=== PATIENT | female | born 1985 | race Asian ===

== ENCOUNTER 2025-09-30 20:17 | Emergency (ER) | payer OTHER ==
[~2025-09-30] VITALS: Ht 144.8 cm; Wt 62.4 kg
--- NOTE | 2025-09-30 21:48 | Physician Documentation ---
History of Present Illness ~ Chief Complaint: Mechanical Fall Stated Complaint: FALL Time Seen by MD: 20:56 HPI Patient is a very pleasant 40-year-old female that presents to the emergency department for evaluation of injuries sustained after a fall at work today. Patient reports that she was in the kitchen when the floor was wet she slipped landing on her sacrum falling back and hitting her head. Patient denies loss of consciousness but reports feeling lightheaded after the fall. Patient also reports that she has pain in her left hand and wrist after the fall. Patient denies being on blood thinners. Patient denies headache patient denies cervical spine tenderness thoracic spine tenderness or lumbar spine tenderness. No other symptoms reported at this time. Medication Reconciliation Allergies: Coded Allergies: No Known Allergies (Unverified , 09/30/25) Review of Systems ROS As stated above in the HPI, otherwise all systems are reviewed and negative. Physical Exam Vital Signs: Temperature: 98.1, Heart Rate: 84, Respiratory Rate: 16, BP: 143/68, Pulse Oximetry: 99, Weight: 62.400 Oxygen Flow Rate: 0 Physical Exam VITALS: Reviewed and as above. GENERAL: Alert, no apparent distress. HEENT: Normocephalic, atraumatic, PERRL, EOMI, dry mucosa, no erythema RESPIRATORY: Lungs clear, normal breath sounds, no respiratory distress. CHEST: No accessory muscle use, no retractions CV: Regular rate, rhythm, no edema, no murmur, No: JVD GI: Soft, non-tender, bowels sounds present, no rebound, guarding, or rigidity BACK: No CVA tenderness, or swelling MUSCULOSKELETAL No deformities, no edema, with palpation to the sacrum coccyx region, negative C-spine T-spine L-spine tenderness with palpation during examination. SKIN: Warm and dry, no rash NEURO: Oriented x4, No motor or sensory deficit PSYCH: Normal mood and affect, no agitation Progress Results/Orders Results/Orders Orders - RUTH ABURTO [employer] Ct Head (09/30/25 21:50) Sacrum & Coccyx (09/30/25 21:43) Hand, Complete (3vw Min) (09/30/25 21:43) Completed Orders - RUTH ABURTO [employer] Ct Head (09/30/25 21:50) Sacrum & Coccyx (09/30/25 21:43) Hand, Complete (3vw Min) (09/30/25 21:43) Vital Signs 09/30/25 20:22 Temp 98.1 Pulse 84 Resp 16 B/P (MAP) 143/68 Pulse Ox 99 O2 Flow Rate 0 Medical Decision Making Additional information obtaine: other Findings Chief Complaint: Fall at work with head injury, sacral pain, and left hand/wrist pain. History of Present Illness: 40-year-old female presented to the emergency department following a fall at work. Patient slipped on wet kitchen floor, landing on sacrum with head strike. Reports transient lightheadedness post-fall but denies loss of consciousness. Complains of left hand/wrist pain and sacral pain. Denies headache, neck pain, or thoracic/lumbar spine tenderness. Not on anticoagulant medications. Diagnostic Studies: CT head: Negative for intracranial abnormalities or acute findings Left hand/wrist X-ray: Negative for fracture or dislocation Sacral X-ray: Positive for nondisplaced sacral fractures Medical Decision-Making: The patient sustained a mild traumatic brain injury with negative head CT and no loss of consciousness. Per [employer] guidelines, patients with negative neuroimaging who are neurologically intact can be safely discharged without need for repeat imaging or observation admission. [1] Discharge instructions were provided regarding symptoms of rare delayed intracranial hemorrhage. [1] The patient has nondisplaced sacral fractures confirmed on plain radiography. Sacral fractures following low-energy trauma are common and frequently occur in isolation. [3] Conservative management is appropriate for nondisplaced sacral fractures without neurologic deficit or pelvic ring instability. [2] Treatment consists of analgesia, activity modification, and progressive mobi lization as tolerated. [2] The patient was counseled on use of donut cushion for sitting comfort and reducing ambulation during initial recovery period. Pain management will include NSAIDs as first-line therapy, which provide effective analgesia for acute musculoskeletal pain and are appropriate for fracture care. [4-5] Short-term NSAID use does not increase risk of fracture nonunion. [4] The left hand/wrist injury showed no radiographic abnormality and is consistent with soft tissue contusion. Symptomatic management is appropriate. Assessment and Plan: Mild traumatic brain injury - negative head CT, neurologically intact, disch arged with head injury precautions Nondisplaced sacral fractures - conservative management with activity modification, donut cushion, NSAIDs for pain control Left hand/wrist contusion - symptomatic management Disposition: Discharged home in stable condition with responsible adult. Patient instructed to return for worsening headache, confusion, weakness, numbness, or inability to ambulate. Follow-up with primary care physician in 1-2 weeks for reassessment and [id number] evaluation. [6] Patient verbalized understanding of discharge instructions and follow-up plan. Differential Dx:Considerations: Include: Closed head injury, Cardiac injury, Fracture(s), Intraabdominal injury, Pneumothorax, Cerebral contusion, Pulmonary contusion, Spine injury, Tracheal injury, Urological injury, Vascular injury, Abrasion(s), Contusion(s), Foreign body(s), Hematoma(s), Laceration(s), Encephalopathy, Other Departure Disposition: 01 HOME / SELF CARE / HOMELESS Impression: Primary Impression: Fall Additional Impression: Sacral fracture, closed Condition: Stable Discharge Instructions: Musculoskeletal Pain Additional Instructions: Your Diagnosis You have a nondisplaced sacral fracture. This is a break in the sacrum, which is the triangular bone at the base of your spine, just above your tailbone. The good news is that your fracture is not displaced (the bone pieces are still lined up properly), and your other imaging tests (head CT and hand X-ray) were normal. What to Expect Pain and discomfort are normal and will gradually improve over the next several weeks Most people with this type of fracture heal well without surgery [1][4] You may feel stiff or sore when sitting, standing, or walking Activity Instructions Walk as much as you can tolerate - Research shows that early walking is safe and helps with recovery [2-3] Start slowly and gradually increase your activity each day as pain allows Rest when you need to - Listen to your body and take breaks Avoid heavy lifting, bending, or twisting for the next few weeks Do not participate in high-impact activities (running, jumping, contact sports) until cleared by your doctor Pain Management Take your prescribed pain medication as directed for the next 3 days After that, you may use [id number] pain relievers like ibuprofen or acetaminophen as needed Apply ice packs to the painful area for 15-20 minutes at a time, several times per day Use a donut cushion when sitting - This takes pressure off your sacrum and makes sitting more comfortable Follow-Up Care Schedule an appointment with your primary care doctor within 1-2 weeks Since this is a workers' compensation case, contact your employer for guidance on which doctor to see for follow-up Bring all discharge paperwork to your follow-up appointment When to Return to the Emergency Department Come back to the emergency department immediately if you experience: Severe headache, confusion, or difficulty staying awake (signs of delayed head injury) Weakness or numbness in your legs Loss of bowel or bladder control Inability to walk or stand Pain that gets significantly worse despite medication Fever over 100.4F Additional Information Healing typically takes 6-12 weeks You should be able to return to normal activities gradually as your pain improves Your doctor will let you know when it is safe to return to work If you have any questions or concerns, contact your primary care doctor or return to the emergency department. Referrals: NO PRIMARY CARE PROVIDER (PCP) Prescriptions Hydrocodone Bit/Acetaminophen 5/325 MG ([place] 5/325 MG) 5 Mg/325 Mg Tablet 1 TAB PO Q12H PRN for pain for 3 Days, #6 TAB Prov: RUTH ABURTO 09/30/25 Education Educated: Patient Educated regarding: diagnosis, treatment, need for follow up Signature Scribe Signature: A Attestation: Scribed for Ruth Aburto by TARA Jo . 09/30/25 23:26 RUTH ABURTO Sep 30, 2025 21:48
--- NOTE | 2025-09-30 22:49 | RADIOLOGY REPORT ---
CLINICAL HISTORY: Fall, head strike. TECHNIQUE: Helical scanning was performed of the head from the skull base to the vertex. Multiplanar reconstructions were performed. This exam was performed according to our departmental dose optimization program. Up-to-date CT equipment and radiation dose reduction techniques are utilized as appropriate. CTDIvol: 64.8 mGy; DLP: 1125.1 mGy-cm. COMPARISON: None available. FINDINGS: Brain parenchyma: No acute hemorrhage, large vascular territory infarct, or mass effect. White matter is within normal limits for age. Ventricles/Extra-axial spaces: No ventriculomegaly or extra-axial collection. Basal cisterns are patent. Extracranial structures: No acute or suspicious osseous abnormality. Normal soft tissues. Left maxillary sinus floor with a small mucosal retention cyst versus polyp; otherwise, the paranasal sinuses and mastoids demonstrate no significant abnormality. Orbits are unremarkable. IMPRESSION: No acute intracranial abnormality.
--- NOTE | 2025-09-30 23:07 | RADIOLOGY REPORT ---
DI SACRUM COCCYX HISTORY: Fall. TECHNICAL DATA: Frontal, [place] and lateral views were obtained of the sacrum and coccyx. COMPARISON: None available. FINDINGS: Lucencies along the posterior aspect of the sacrococcygeal region, which are concerning for acute nondisplaced fractures. The sacral neuroforamina appear symmetric. The sacroiliac joints appear normal. IMPRESSION: Lucencies along the posterior aspect of the sacrococcygeal region, which are concerning for acute nondisplaced fractures. Recommend correlation with point tenderness at this region.
--- NOTE | 2025-09-30 23:09 | RADIOLOGY REPORT ---
EXAM: LEFT HAND, COMPLETE (3VW MIN) CLINICAL HISTORY: Fall. COMPARISON: None available. TECHNIQUE: LEFT HAND, COMPLETE (3VW MIN) FINDINGS: There is no evidence of an acute fracture, dislocation, blastic, or lytic lesions. No radiopaque foreign bodies. No joint effusion or superficial soft tissue abnormalities. IMPRESSION: No acute fracture or dislocation.
[2025-09-30] MEDS ORDERED: HYDR-3965 PO (23:23)
[2025-09-30] MEDS: ketorolac trometh 15mg/ml vial 15 MG/ML ML IM ONE (23:25)
[2025-09-30 23:49] VITALS: BP 140/60; PULSE 82; RESP 18; TEMP 98.6; O2SAT 99
== END 2025-09-30 23:51 | disposition home or self-care (01) ==
LOC: ER 20:18
DX: S32.10XA Unspecified fracture of sacrum, initial encounter for closed fracture (principal); W01.198A Fall on same level from slipping, tripping and stumbling with subsequent striking against other object, initial encounter; Y93.89 Activity, other specified; Y92.000 Kitchen of unspecified non-institutional (private) residence as the place of occurrence of the external cause; Y99.0 Civilian activity done for income or pay
CPT/HCPCS: 70450; 72220; 73130; 96372; 99285; J1885